=== PATIENT | male | born 1980 | race African-American/Black ===

== ENCOUNTER 2022-07-27 23:30 | Emergency (ER) | payer BC, SELFPAY ==
[2022-07-28 00:26] VITALS: BP 123/70; PULSE 79; RESP 18; TEMP 36.2; O2SAT 100
[2022-07-28 00:28] LABS: Glucose Point of Care 323 mg/dl (65-105)
[2022-07-28] MEDS: SODIUM CHLORIDE 0.9% IV 2,000 ML 999 ML IV CONT (01:53)
--- NOTE | 2022-07-28 01:53 | ED.GENADULT ---
HPI - General Adult General Chief complaint: Unspecified Stated complaint: diabetic, bs at home 400 Time Seen by Provider: 07/28/22 01:28 History of Present Illness HPI narrative: This is a 42-year-old male with past history of diabetes, on [place]bels[place], who presents to the emergency department complaining of elevated blood sugars. Patient states he is not consistent with his medications due to his changing shift schedules. He states his blood sugars typically in the 120s to 150s but has noticed a rise to the 300s. He complains of some malaise but denies abdominal pain, chest pain, nausea or vomiting. Related Data Allergies Allergy/AdvReac Type Severity Reaction Status Date / Time No Known Allergies Allergy Verified 07/28/22 01:24 Review of Systems Review of Systems: CONSTITUTIONAL: Some mild malaise denies fever, chills, or sweats CARDIOVASCULAR: Denies chest pain, palpitations, or edema. RESPIRATORY: Denies cough or dyspnea. GASTROINTESTINAL: Denies abdominal pain, nausea, vomiting, or diarrhea. GENITOURINARY: Denies dysuria or hematuria. SKIN: Denies rash or itching. MUSCULOSKELETAL: Denies back pain, joint pain, or myalgia. NEUROLOGIC: Denies headache, numbness, dizziness, or weakness. PSYCHIATRIC: Denies anxiety or depression. [facility] Past Medical History Medical History (Updated 07/28/22 @ 03:32 by Jacobo Murphy MD) Diabetes type 2, uncontrolled Social History Social History (Updated 07/28/22 @ 01:57 by Jacobo Murphy MD) Smoking status: Never smoker Alcohol intake: never Substance use: never Exam Narrative: GENERAL: Well-well developed, well-nourished, and in no acute distress. HEAD: Normocephalic, atraumatic. EYES: PERRLA and EOMI. ENT: Nares clear, no rhinorrhea or epistaxis. Mucous membranes moist. Oropharynx without tonsillar hypertrophy exudate or other lesions. CHEST: Clear to auscultation. No respiratory distress. No wheezes rales or rhonchi HEART: Regular rate and rhythm. No murmur heard. Normal peripheral pulses. ABDOMEN: Soft, nontender, nondistended, normal active bowel sounds. EXTREMITIES: Normal range of motion. No edema. SKIN: Warm, dry, no rash. NEURO: No focal deficits. Alert and oriented x3. PSYCH: Normal mood and affect. Course Course Emergency Course: 03:14 - CBC unremarkable. Chemistry is not concerning for DKA, anion gap 7. UA demonstrates 3+ glucose and trace ketones. Repeat fingerstick glucose 216 after 2 liters of fluid. Discussed findings with the patient. Will discharge with primary care follow-up. Discussed return and emergent precautions including signs/symptoms of acute abdomen and DKA. The patient voiced understanding and is comfortable with the plan. All questions answered to his satisfaction. Vital Signs Vital signs: Vital Signs Temperature 97.2 F L 07/28/22 00:26 Pulse Rate 79 07/28/22 00:26 Respiratory Rate 18 07/28/22 00:26 Blood Pressure 123/70 07/28/22 00:26 Pulse Oximetry 100 07/28/22 00:26 Oxygen Delivery Room Air 07/28/22 00:26 Temperature 97.2 F L 07/28/22 00:26 Pulse Rate 65 07/28/22 03:21 Respiratory Rate 18 07/28/22 00:26 Blood Pressure 126/79 07/28/22 03:21 Pulse Oximetry 99 07/28/22 03:21 Oxygen Delivery Room Air 07/28/22 00:26 Medical Decision Making MDM Narrative Medical decision making narrative: Plan: Fluids, labs, reassess Differential Diagnosis Differential Diagnosis: Hyperglycemia, medication noncompliance, DKA, metabolic abnormality, other Vital Signs Vital Signs: Vital Signs Temperature 97.2 F L 07/28/22 00:26 Pulse Rate 79 07/28/22 00:26 Respiratory Rate 18 07/28/22 00:26 Blood Pressure 123/70 07/28/22 00:26 Pulse Oximetry 100 07/28/22 00:26 Oxygen Delivery Room Air 07/28/22 00:26 Temperature 97.2 F L 07/28/22 00:26 Pulse Rate 65 07/28/22 03:21 Respiratory Rate 18 07/28/22 00:26 Blood Pressure 126/79 07/28/22 03:21 Pulse Oximetr
[2022-07-28 01:59] LABS: Basophils Percent Auto 0.6 % (0.2-1.2); Eosinophils Absolute Auto 0.1 K/mm3 (0-0.3); Eosinophils Percent Auto 1.5 % (0-4.4); Hemoglobin 14.7 g/dL (14.0-18.0); Immature Granulocyte Absolute 0.01 K/mm3 (0.00-0.031); Immature Granulocyte Percent A 0.1 % (0-0.5); Lymphocytes Absolute Auto 3.62 K/mm3 (0.9-3.2); Lymphocytes Percent Auto 53.2 % (18.3-44.2); Mean Corpuscular HGB Conc 33.4 g/dl (32-36); Mean Corpuscular Hemoglobin 29.2 pg (26-34); Mean Corpuscular Volume 87.3 fl (80-100); Mean Platelet Volume 10.4 fl (7.4-10.4); Monocytes Absolute Auto 0.6 K/mm3 (0.1-0.6); Monocytes Percent Auto 9.4 % (2.6-8.5); Neutrophils Absolute Auto 2.4 K/mm3 (1.3-6.7); Neutrophils Percent Auto 35.2 % (45.5-73.1); Platelet Count Result 233 k/mm3 (150-375); Red Blood Count 5.04 M/mm3 (4.6-6.20); Red Cell Distribution Width 12.7 % (11.5-14.5); White Blood Count 6.8 K/mm3 (4.5-10.0)
--- NOTE | 2022-07-28 01:59 | PC.NURSE ---
patient refusing to be placed on monitor at this time.
[2022-07-28 02:01] LABS: Appearance Urine Clear (Clear); Bilirubin Urine Negative (Negative); Blood Urine Negative (Negative); Color Urine Yellow (Yellow); Glucose Urine UA 3+ mg/dL (Negative); Ketones Urine Trace mg/dL (Negative); Leukocyte Esterase Ur Negative LEU/UL (Negative); Nitrate Urine Negative (Negative); Protein Urine Negative (Negative); Urobilinogen Urine 0.2 mg/dL (<2.0)
[2022-07-28 02:16] LABS: Specific Grav Ur 1.043 (1.001-1.035)
[2022-07-28 02:26] LABS: Alanine Aminotransferase 22 U/L (6-50); Albumin Level 3.9 g/dL (3.5-5.1); Alkaline Phosphatase 95 U/L (38-126); Anion Gap 7 mmol/L (8-16); Aspartate Amino Transferase 20 U/L (17-59); Bilirubin,Total 0.5 mg/dL (0.2-1.3); Blood Urea Nitrogen 15 mg/dL (9-20); Calcium 8.7 mg/dL (8.4-10.2); Carbon Dioxide 26 mmol/L (22-30); Chloride 102 mmol/L (98-107); Estimated CRCL calculation 113 ml/min; Estimated Glomerular Filt Rate > 60; Glucose 263 mg/dL (65-110); Potassium 3.6 mmol/L (3.4-5.0); Sodium 135 mmol/L (137-145)
[2022-07-28 02:28] LABS: Glucose 261 mg/dL (65-110)
[2022-07-28 02:34] LABS: Add Urine Microscopic? YES
[2022-07-28 03:16] LABS: Glucose Point of Care 216 mg/dl (65-105)
[2022-07-28 03:21] VITALS: BP 126/79; PULSE 65; O2SAT 99
== END 2022-07-28 03:43 | disposition home or self-care (01) ==
PROVIDERS: Emergency Provider Preventive Medicine Aerospace Medicine; PCP Family Medicine Sports Medicine
DX: E11.65 Type 2 diabetes mellitus with hyperglycemia (principal); T38.3X6A Underdosing of insulin and oral hypoglycemic [antidiabetic] drugs, initial encounter; Z91.128 Patient's intentional underdosing of medication regimen for other reason
CPT/HCPCS: 36415; 80053; 81001; 82947; 82948; 85025; 96360; 99283; J7030